=== PATIENT | female | born 1960 | race Two or more races ===

== ENCOUNTER 2020-01-16 17:05 | Emergency (ER) | payer OTHER ==
[~2020-01-16] VITALS: Ht 165.1 cm; Wt 83.9 kg
[2020-01-16] MEDS ORDERED: DIOVAN HCT 3201 EAC1 (17:20)
[2020-01-16] MEDS ORDERED: CARVEDILOL12.5 MG (17:20)
[2020-01-16] MEDS ORDERED: ASPIR 8181 MG (17:21)
== END 2020-01-16 23:38 | disposition home or self-care (01) ==
LOC: ER 17:05
DX: K59.09 Other constipation (principal); K57.30 Diverticulosis of large intestine without perforation or abscess without bleeding

== ENCOUNTER 2020-02-11 14:09 | Emergency (ER) | payer OTHER ==
[~2020-02-11] VITALS: Ht 165.1 cm; Wt 86.2 kg
[~2020-02-11 14:09] MED LIST: ASPIR 8181 MG; CARVEDILOL12.5 MG; DIOVAN HCT 3201 EAC1
== END 2020-02-11 19:00 | disposition home or self-care (01) ==
LOC: ER 14:09 → CPU-OBS 14:18 → ER 14:18
DX: R07.89 Other chest pain (principal); R42 Dizziness and giddiness
CPT/HCPCS: G0378; G0379; 93005